=== PATIENT | female | born 1995 | race Caucasian/White ===

== ENCOUNTER → 2018-04-16 14:42 | Outpatient (CLI) | payer MEDICAID, SELFPAY ==
[2018-04-16 15:49] LABS: hCG Titer Quant., Serum 5998 mIU/mL (<9 non-preg)
== END ==
PROVIDERS: Referring Provider Obstetrics & Gynecology; Visit Provider Obstetrics & Gynecology
DX: Z34.90 Encounter for supervision of normal pregnancy, unspecified, unspecified trimester (principal)
CPT/HCPCS: 36415; 84702

== ENCOUNTER 2018-04-20 17:45 | Emergency (ER) | payer MEDICAID, SELFPAY ==
[2018-04-20 17:45] VITALS: BP 166/79; PULSE 116; RESP 20; TEMP 36.4; O2SAT 95; BMI 24.9
[2018-04-20 18:48] LABS: Absolute Lymphocyte Count 3.23 X10^3/ul (0.83-4.51); Absolute Neutrophil Count 7.5 X10^3/uL (2.0-7.7); Basophil# 0.01 X10^3/uL; Basophil% 0.1 % (0-1); Eosinophil# 0.15 X10^3/uL; Eosinophils% 1.3 % (0-5); Hematocrit 40.9 % (37-47); Hemoglobin 13.7 g/dl (12.0-15.0); Lymphocyte # 3.23 X10^3/ul (4.0); Lymphocyte % 27.2 % (19-41); Mean Corp Hgb Conc 33.5 g/gl (32-36); Mean Corpuscular Hgb 30.4 pg (27.0-32.0); Mean Corpuscular Volume 90.7 fL (81-99); Mean Platelet Vol. 10.4 fl (6.2-12.0); Monocyte# 0.93 X10^3/uL; Monocyte% 7.8 % (0-10); Neutrophil # 7.53 X10^3/uL (2.7-7.7); Neutrophil % 63.3 % (47-70); Platelet Count 224 K/mm3 (150-450); RBC Distribution Width CV 12.7 % (11.6-14.6); RBC Distribution Width SD 41.9 fl (35.1-43.9); Red Blood Count 4.51 M/mm3 (4.2-5.4); White Blood Count 11.9 K/mm3 (4.4-11.0)
[2018-04-20 18:49] LABS: POSITIVE COUNT NO; POSITIVE DIFFERENTIAL NO; POSITIVE MORPHOLOGY NO
--- NOTE | 2018-04-20 18:58 | ED.VISSUMM ---
- ER Visit Summary Date of Service: 04/20/18 Chief Complaint: Vaginal bleeding History of Present Illness: The patient is a 23 F presenting for evaluation secondary to vaginal bleeding. Patient states that she is early on in a . She had a positive test at the OB office. Patient states that she had intercourse today, and started to have vaginal bleeding and was passing some small clots and having some pelvic cramping. Patient is a . She does not know her blood type. She denies any other symptoms at this time. Physical Examination: Vital signs initially notable for heart rate of 116 which improved a heart rate of 90 on my physical exam. Tearful female not in physiologic distress. No conjunctival pallor moist mucous membranes. Heart regular rate and rhythm lungs clear. Abdomen soft nontender. Remainder of physical otherwise unremarkable. Chaperoned pelvic exam shows normal external genitalia, normal cervix, mild active bleeding coming from the cervical loss with a closed cervical eyes. Test Results: Bedside ultrasound of the pelvis shows a yolk sac with no pole identified. Patient is type O+ blood, urine shows a mild amount of blood with no infection. Chemistry unremarkable. Emergency Department Course and Treatment: Patient presented with first trimester vaginal bleeding. Pelvic ultrasound was able to identify a yolk sac, making the likelihood of ectopic very low. Patient's type O+ blood. She had a quantitative hCG drawn approximately a week ago which was 5000. Patient will be instructed that she needs to follow-up with OB in 48 hours for a repeat quantitative hCG. Patient was discharged with reassurance. Disposition: Discharge Impression: 1. Threatened miscarriage This note was generated with [employer] dictation software. It may contain incorrect words, spelling, and punctuation that were not noted in review of the chart prior to signing ED Disposition - Plan for ED Patient: Disposition: Home or Assisted Living Chief Complaint: Vag Bld, Preg Diagnosis: Threatened miscarriage Instructions: ED Miscarriage Poss Additional Instructions: Followup with your OBGYN in 2 days for a repeat HCG.
[2018-04-20 19:00] LABS: Anion Gap 8 (5-15); BUN 18 mg/dL (7-18); BUN/Creat Ratio 28.2 RATIO (10-20); Calcium,Total 8.6 mg/dL (8.5-10.1); Chloride 107 mmol/L (98-107); Creatinine, Serum 0.64 mg/dL (0.55-1.02); EST Glomerular Filtration Rate 124 mL/min (>60); Est Glom Filt Rate - Afr Amer 150 mL/min (>60); Estimated Creatinine Clearance 104.04 ml/min; Glucose 104 mg/dL (74-106); Sodium Level 140 mmol/L (136-145)
[2018-04-20 19:40] LABS: Bacteria 0 SEEN /hpf (None Seen); Mucous, Urine 0 SEEN /hpf (<or=2+); Squamous Epithelial Cells - UA 0 SEEN /hpf (5-10); White Blood Cells 0 SEEN /hpf (0-5)
[2018-04-20 19:43] LABS: Glucose, Dipstick Normal (Normal); Ketone-Dipstick Negative (Negative); Leukocyte Esterase-Dipstick Negative /ul (Negative); Nitrite-Dipstick Negative (Negative); Occult Blood-Urine 250 /ul (Negative); Protein-Dipstick Negative (Negative); Urine Bilirubin Dipstick Negative (Negative); Urine Urobilinogen Normal (Normal)
[2018-04-20 19:45] LABS: Color, Urine Yellow (Yellow); Urine Clarity Clear (Clear)
[2018-04-20 19:52] LABS: Red Blood Cells-Urine 25-50 SEEN /hpf (0-5)
[2018-04-20 21:22] VITALS: PULSE 87; RESP 16; O2SAT 98
[2018-04-20 21:25] LABS: hCG Titer Quant., Serum 17243 mIU/mL (<9 non-preg)
== END 2018-04-20 21:36 | disposition home or self-care (01) ==
PROVIDERS: Emergency Medicine; Emergency Provider Emergency Medicine
DX: O20.0 Threatened abortion (principal)
CPT/HCPCS: 80048; 81001; 84702; 85025; 86900; 86901; 99283; A4216

== ENCOUNTER 2018-11-12 19:03 | Emergency (ER) | payer MEDICAID, SELFPAY ==
[2018-11-12 19:03] VITALS: BP 138/80; PULSE 90; RESP 20; O2SAT 98
[2018-11-12 19:04] VITALS: BP 146/91; PULSE 97; RESP 24; TEMP 37.4; O2SAT 97; BMI 37.4
--- NOTE | 2018-11-12 19:08 | ED.RN ---
Addendum entered by Zaida Bob 11/12/18 19:34: PT HEAD CAGER IS HEATH NOT NGUYỄN Original Note: SPOKE WITH THE CHARGE NURSE IN [facility]. SEE PT IN ER FOR TRAUMA THEN CONTACT DR ADRIAN AND SEND TO [facility]
--- NOTE | 2018-11-12 19:36 | ED.DCSUM_ITS ---
- ER Visit Summary Date of Service: 11/12/18 Chief Complaint: Fall History of Present Illness: The patient is a 23 F presenting after fall. Patient states that it was raining and she slipped on wet steps. She fell down approximately 5 steps. She did not hit her head or lose consciousness. She complains of left lower back pain. She is 36 weeks , G2, P1. She is scheduled to have a planned on December 12. She denies vaginal bleeding. Denies hematuria. Denies other injuries. Physical Examination: Vitals are stable. Blood pressure 146/91. Patient is afebrile. Alert no acute distress. HEENT exam is unremarkable. Neck is nontender Lungs are clear and equal bilaterally. Heart is regular rate and rhythm. Abdomen is soft nontender gravid Back left paraspinal lumbar muscle tenderness, no midline tenderness Extremities are unremarkable. Skin is warm and dry. Remainder of exam is unremarkable. Emergency Department Course and Treatment: heart tones 128. She was given Tylenol. Discussed with Dr. Lacey. Patient will be sent to OB triage for monitoring and blood pressure monitoring. Disposition: To OB triage Impression: Fall, back pain, third trimester This note was generated with [employer] dictation software. It may contain incorrect words, spelling, and punctuation that were not noted in review of the chart prior to signing ED Disposition - Plan for ED Patient: Instructions: FALL, Mechanical Referrals: Jeferson Bhagat [NON-STAFF] -
--- NOTE | 2018-11-12 19:42 | ED.DEP ---
ED Disposition - Plan for ED Patient: Instructions: FALL, Mechanical Referrals: Jeferson Bhagat [NON-STAFF] -
[2018-11-12] MEDS: Acetaminophen 500 MG Tablet 1000 MG PO (19:50)
[2018-11-12 20:00] VITALS: BP 138/78
== END 2018-11-12 20:00 | disposition home or self-care (01) ==
PROVIDERS: Emergency Provider Emergency Medicine
DX: O99.89 Other specified diseases and conditions complicating pregnancy, childbirth and the puerperium (principal); M54.5 Low back pain; W10.9XXA Fall (on) (from) unspecified stairs and steps, initial encounter; Z3A.36 36 weeks gestation of pregnancy

== ENCOUNTER 2018-11-12 19:56 | Outpatient (CLI) | payer MEDICAID, SELFPAY ==
[2018-11-12 19:04] VITALS: BMI 37.4
[2018-11-12 20:30] VITALS: BMI 34.4
[2018-11-12 22:42] VITALS: RESP 18
--- NOTE | 2018-11-18 13:43 | OB.TRI.NOTE ---
History of Present Illness Date of Service: 11/12/18 Was patient seen by the physician?: No Reason For Visit: FALL Allergies No Known Allergies Allergy (Verified 11/12/18 20:30) Physical Exam Vitals: Vital Signs Resp 18 11/12/18 22:42 Impression/Plan Patient Name: MARCIO SORENSEN Record Number: [id number] Date of : [birth year] Patient Status: Inpatient Attending Provider: Re Osuna Date: 11/13/18 08:12 Initialization Date: 11/13/18 08:12 History of Present Illness Date of Service: 11/12/18 Was patient seen by the physician?: No Reason For Visit: REPEAT C SECTION/NEEDS ANES CONSULT Date of Service: 11/12/18 Final JULIA: 12/19/18 Gestational age: 34 Weeks and 6 Days Allergies No Known Allergies Allergy (Verified 11/12/18 20:30) NST - FHR Rate Baby A Baseline: 125 Variability:: Moderate Accelerations:: 15 x 15 Decelerations:: None NST Reactive:: Yes FHR Category:: Category I Uterine Activity:: no regular ctxs Impression/Plan 23-year-old 2 para 1 at 34-5/7 weeks, high risk multigravida, fall on her buttocks. Nonstress test is reactive. Patient was monitored until 4 hours post fall. She had no direct abdominal trauma. She is Rh+. Discharged home with kick counts and to follow-up in the office as scheduled or as needed.
== END 2018-11-12 22:42 | disposition home or self-care (01) ==
LOC: WPOUT 20:06 → WP 20:06
PROVIDERS: Visit Provider Obstetrics & Gynecology
DX: O99.89 Other specified diseases and conditions complicating pregnancy, childbirth and the puerperium (principal); M54.5 Low back pain; W10.9XXA Fall (on) (from) unspecified stairs and steps, initial encounter; O09.623 Supervision of young multigravida, third trimester; O34.219 Maternal care for unspecified type scar from previous cesarean delivery; O36.0130 Maternal care for anti-D [Rh] antibodies, third trimester, not applicable or unspecified; Z3A.36 36 weeks gestation of pregnancy
CPT/HCPCS: 59025; 59050; 99218; 99282; G0378

== ENCOUNTER 2018-12-07 18:50 | Outpatient (CLI) | payer MEDICAID, SELFPAY ==
[2018-12-07 19:50] LABS: ROM Internal Control Test YES-OK TO RESULT pt. (Internal QC); ROM Patient Test Negative (Negative)
[2018-12-07 19:53] VITALS: BMI 34.7
[2018-12-07 19:57] LABS: Color, Urine Yellow (Yellow); Glucose, Dipstick Normal (Normal); Ketone-Dipstick 15 mg/dl (Negative); Leukocyte Esterase-Dipstick 100 /ul (Negative); Nitrite-Dipstick Negative (Negative); Occult Blood-Urine Negative /ul (Negative); Protein-Dipstick 30 mg/dl (Negative); Urine Bilirubin Dipstick 1 mg/dL (Negative); Urine Clarity Sl. Cloudy (Clear); Urine Urobilinogen 4 mg/dl (Normal)
[2018-12-07] MEDS: 0.9% Normal Saline 1,000 ML 500 ML IV (20:47)
[2018-12-07] MEDS: proMETHazine 25 MG/ML Syringe IV (20:58)
[2018-12-07 21:13] LABS: Hematocrit 37.8 % (37-47); Hemoglobin 12.7 g/dL (12.0-15.0); Mean Corp Hgb Conc 33.6 g/dL (32-36); Mean Corpuscular Hgb 29.9 pg (27.0-32.0); Mean Corpuscular Volume 88.9 fL (81-99); Platelet Count 218 K/mm3 (150-450); RBC Distribution Width CV 13.8 % (11.6-14.6); RBC Distribution Width SD 44.3 fl (35.1-43.9); Red Blood Count 4.25 M/mm3 (4.2-5.4); White Blood Count 9.8 K/mm3 (4.4-11.0)
[2018-12-07 21:31] LABS: ALB/GLOB Ratio 0.8 RATIO (0.9-2.4); AST(SGOT) 21 U/L (15-37); Alanine Aminotransfer ALT/SGPT 26 U/L (13-56); Albumin, Serum 2.8 g/dL (3.2-5.0); Alkaline Phosphatase 151 U/L (45-117); Anion Gap 8 (5-15); BUN 11 mg/dL (7-18); BUN/Creat Ratio 17.2 RATIO (10-20); Calcium,Total 8.3 mg/dL (8.5-10.1); Chloride 106 mmol/L (98-107); Creatinine, Serum 0.64 mg/dL (0.55-1.02); EST Glomerular Filtration Rate 123 mL/min (>60); Est Glom Filt Rate - Afr Amer 149 mL/min (>60); Estimated Creatinine Clearance 109.05 ml/min; Globulin 3.6 g/dL (2.2-4.2); Glucose 82 mg/dL (74-106); Potassium 3.8 mmol/L (3.5-5.1); Protein, Total 6.4 g/dL (6.4-8.2); Sodium Level 136 mmol/L (136-145)
--- NOTE | 2018-12-08 09:05 | OB.TRI.HP_ITS ---
History of Present Illness Date of Service: 12/07/18 Was patient seen by the physician?: No Reason For Visit: RULE OUT LABOR Final JULIA: 12/19/18 Gestational age: 38 Weeks and 3 Days Allergies No Known Allergies Allergy (Verified 12/07/18 19:52) Laboratory Studies: Laboratory Tests 12/07/18 12/07/18 12/07/18 Range/Units 20:47 20:47 19:43 WBC 9.8 (4.4-11.0) K/mm3 RBC 4.25 (4.2-5.4) M/mm3 Hgb 12.7 (12.0-15.0) g/dL Hct 37.8 (37-47) % MCV 88.9 (81-99) fL MCH 29.9 (27.0-32.0) pg MCHC 33.6 (32-36) g/dL RDW Std Deviation 44.3 H (35.1-43.9) fl RDW Coeff of Becky 13.8 (11.6-14.6) % Plt Count 218 (150-450) K/mm3 MPV 11.0 (6.2-12.0) fl Sodium 136 (136-145) mmol/L Potassium 3.8 (3.5-5.1) mmol/L Chloride 106 (98-107) mmol/L Carbon Dioxide 22.0 (21.0-32.0) mmol/L Anion Gap 8 (5-15) BUN 11 (7-18) mg/dL Creatinine 0.64 (0.55-1.02) mg/dL Estim Creat Clear Calc 109.05 ml/min Est GFR (MDRD) Af Amer 149 (>60) mL/min Est GFR (MDRD) Non-Af 123 (>60) mL/min BUN/Creatinine Ratio 17.2 (10-20) RATIO Glucose 82 (74-106) mg/dL Calcium 8.3 L (8.5-10.1) mg/dL Total Bilirubin 0.40 (0.20-1.00) mg/dL AST 21 (15-37) U/L ALT 26 (13-56) U/L Alkaline Phosphatase 151 H (45-117) U/L Total Protein 6.4 (6.4-8.2) g/dL Albumin 2.8 L (3.2-5.0) g/dL Globulin 3.6 (2.2-4.2) g/dL Albumin/Globulin Ratio 0.8 L (0.9-2.4) RATIO Urine Color Yellow (Yellow) Urine Clarity Sl. Cloudy (Clear) Urine pH 6.0 (5.0 - 8.0) Ur Specific Fairchild 1.020 (1.002-1.030) Urine Protein 30 H (Negative) mg/dl Urine Glucose (UA) Normal (Normal) mg/dl Urine Ketones 15 H (Negative) mg/dl Urine Occult Blood Negative (Negative) /ul Urine Nitrite Negative (Negative) Urine Bilirubin 1 H (Negative) mg/dL Urine Urobilinogen 4 H (Normal) mg/dl Ur Leukocyte Esterase 100 H (Negative) /ul Vag Amniotic Fld Detect (Negative) 12/07/18 Range/Units 19:00 WBC (4.4-11.0) K/mm3 RBC (4.2-5.4) M/mm3 Hgb (12.0-15.0) g/dL Hct (37-47) % MCV (81-99) fL MCH (27.0-32.0) pg MCHC (32-36) g/dL RDW Std Deviation (35.1-43.9) fl RDW Coeff of Becky (11.6-14.6) % Plt Count (150-450) K/mm3 MPV (6.2-12.0) fl Sodium (136-145) mmol/L Potassium (3.5-5.1) mmol/L Chloride (98-107) mmol/L Carbon Dioxide (21.0-32.0) mmol/L Anion Gap (5-15) BUN (7-18) mg/dL Creatinine (0.55-1.02) mg/dL Estim Creat Clear Calc ml/min Est GFR (MDRD) Af Amer (>60) mL/min Est GFR (MDRD) Non-Af (>60) mL/min BUN/Creatinine Ratio (10-20) RATIO Glucose (74-106) mg/dL Calcium (8.5-10.1) mg/dL Total Bilirubin (0.20-1.00) mg/dL AST (15-37) U/L ALT (13-56) U/L Alkaline Phosphatase (45-117) U/L Total Protein (6.4-8.2) g/dL Albumin (3.2-5.0) g/dL Globulin (2.2-4.2) g/dL Albumin/Globulin Ratio (0.9-2.4) RATIO Urine Color (Yellow) Urine Clarity (Clear) Urine pH (5.0 - 8.0) Ur Specific Fairchild (1.002-1.030) Urine Protein (Negative) mg/dl Urine Glucose (UA) (Normal) mg/dl Urine Ketones (Negative) mg/dl Urine Occult Blood (Negative) /ul Urine Nitrite (Negative) Urine Bilirubin (Negative) mg/dL Urine Urobilinogen (Normal) mg/dl Ur Leukocyte Esterase (Negative) /ul Vag Amniotic Fld Detect Negative (Negative) NST - FHR Rate Baby A Baseline: 140 Variability:: Moderate Accelerations:: 15 x 15 Decelerations:: None Uterine Activity:: Irregular Impression/Plan Reactive NST for false labor and N&V in Suspect GI virus Labs normal Urine culture pending
== END 2018-12-07 22:52 | disposition home or self-care (01) ==
LOC: WPOUT 19:08 → WP 19:08
PROVIDERS: Referring Provider Obstetrics & Gynecology; Visit Provider Obstetrics & Gynecology
DX: O47.1 False labor at or after 37 completed weeks of gestation (principal); O21.9 Vomiting of pregnancy, unspecified; O21.8 Other vomiting complicating pregnancy; Z3A.38 38 weeks gestation of pregnancy
CPT/HCPCS: 96361 ×2; 96374; 36415; 59025; 59050; 80053; 81002; 84112; 85027; 87086; 87088; 99218; J7030; G0378

== ENCOUNTER 2018-12-11 07:35 | Inpatient (IN) | payer MEDICAID, SELFPAY ==
--- NOTE | 2018-11-13 08:12 | OB.TRI.NOTE ---
History of Present Illness Date of Service: 11/12/18 Was patient seen by the physician?: No Reason For Visit: REPEAT C SECTION/NEEDS ANES CONSULT Date of Service: 11/12/18 Final JULIA: 12/19/18 Gestational age: 34 Weeks and 6 Days Allergies No Known Allergies Allergy (Verified 11/12/18 20:30) NST - FHR Rate Baby A Baseline: 125 Variability:: Moderate Accelerations:: 15 x 15 Decelerations:: None NST Reactive:: Yes FHR Category:: Category I Uterine Activity:: no regular ctxs Impression/Plan 23-year-old 2 para 1 at 34-5/7 weeks, high risk multigravida, fall on her buttocks. Nonstress test is reactive. Patient was monitored until 4 hours post fall. She had no direct abdominal trauma. She is Rh+. Discharged home with kick counts and to follow-up in the office as scheduled or as needed.
--- NOTE | 2018-12-02 10:27 | HP.PCM_ITS ---
History and Physical Date of Admission: 12/12/18 Re Bhagat Physician [employer] H&P Signed Encounter Date: 12/02/2018 Expand All Collapse All Hide copied text Hover for details Ashley He is a 23 year old female who presents for pre op for C/s scheduled at 39 weeks. Pt declines TOLAC. Pt reports no CP, SOB, dizziness. ? PAST?MEDICAL?HISTORY PAST MEDICAL HISTORY Diagnosis Date ? Bipolar disorder (HCC) ? ? Depressive disorder, not elsewhere classified ? ? Followed by Dr Michaels at located within [facility] ? alcohol spectrum disorder ? ? NEGATIVE HISTORY OF 09-04-2011 ? Normal Color Vision ? Other anxiety states ? ? PMH - PAST MEDICAL HISTORY OF ? ? Chiari one malformation ? PTSD (post-traumatic stress disorder) ? ? Reactive attachment disorder ? ? Seizure (HCC) ? ? Spina bifida (HCC) ? ? Patient reports history of spina bifida ?occulta ? PAST?SURGICAL?HISTORY PAST SURGICAL HISTORY Procedure Laterality Date ? SECTION HX ? ? ? NONE ? ? ? FAMILY?HISTORY FAMILY HISTORY Adopted: Yes Problem Relation Age of Onset ? Diabetes Maternal Grandfather ? ? Heart Maternal Grandfather ? ? SOCIAL?HISTORY Social History Socioeconomic History Marital status: Single Spouse name: Not on file Number of children: Not on file Years of education: Not on file Highest education level: Not on file Occupational History Occupation: student Social Needs Financial resource strain: Not on file Food insecurity: Worry: Not on file Inability: Not on file Transportation needs: Medical: Not on file Non-medical: Not on file Tobacco Use Smoking status: Light Tobacco Smoker Smokeless tobacco: Never Used Substance and Sexual Activity Alcohol use: No Drug use: No Sexual activity: Yes Partners: Male Comment: Lifestyle Physical activity: Days per week: Not on file Minutes per session: Not on file Stress: Not on file Relationships Social connections: Talks on phone: Not on file Gets together: Not on file Attends alevism service: Not on file Active member of club or organization: Not on file Attends meetings of clubs or organizations: Not on file Relationship status: Not on file Intimate partner violence: Fear of current or ex partner: Not on file Emotionally abused: Not on file Physically abused: Not on file Forced sexual activity: Not on file Other Topics Concerns: Not on file Social History Narrative Not on file ? CURRENT?MEDICATIONS ? Current Outpatient Medications: omega-3 fatty acids (FISH OIL CONCENTRATE ORAL) Take by mouth. famotidine (PEPCID) 20 mg tablet Take 1 tablet by mouth twice daily. folic acid 1 mg tablet Take 4 tablets by mouth once daily. Smitkblc-Gs-Btn-Fe-FA ( VITAMIN) tab Take 1 tablet by mouth once daily. ? No current facility-administered medications for this visit. Allergies As of Date: 12/02/2018 (No Known Allergies) Fully Assessed 12/02/2018 ? ? REVIEW OF SYSTEMS Abdomen: no ctx Bladder: no dysuria .. Expanded ROS: Negative fever, CP Allergies and current medication updated:Yes ? EXAM: BP 112/68 Wt 194 lb (88.0kg) ? GENERAL: pleasant, female in no apparent distress HEENT: Normocephalic and atraumatic NECK: full range of motion DERMATOLOGY: Normal, without lesions, non-icteric and non-hirsute CARDIAC: regular rate and rhythm CHEST: Clear to auscultation Normal inspiratory effort ABDOMEN: soft, non-tender and gravid. NEURO: alert and oriented x3,exam grossly non-focal EXTREMITIES: normal ? ASSESSMENT AND PLAN: Encounter Diagnosis ? ? ICD-10-CM ? 1. Visit for screening Z36.9 URINE OB DIP B/O 2. 37 weeks gestation of Z3A.37 URINE OB DIP B/O ? 3. Consent signed today 4. Pt has been counseled on risks/benefits and alternatives of surgery including but not limited to anesthesia, bleeding, infection, injury to pelvic structures including bowel, bladder, ureters and vessels. Pt wishes to proceed with surgery at this time. ? ? Re Osuna MD ? ?
[2018-12-09 15:30] VITALS: BP 123/73; PULSE 62; RESP 18; TEMP 36.4; O2SAT 97; BMI 35.5
[2018-12-11] VITALS (14 sets, daily range): BP systolic 97–130; BP diastolic 45–70; PULSE 70–86; RESP 16–18; TEMP 35.7–36.6; O2SAT 95–99; BMI 34.2
[2018-12-11] MEDS: Lactated Ringers 1,000 ML 999 ML IV (07:40)
[2018-12-11 07:57] LABS: Absolute Lymphocyte Count 2.66 X10^3/uL (0.83-4.51); Absolute Neutrophil Count 7.2 X10^3/uL (2.0-7.7); Basophil# 0.03 X10^3/uL; Basophil% 0.3 % (0-1); Eosinophil# 0.08 X10^3/uL; Eosinophils% 0.7 % (0-5); Lymphocyte # 2.66 X10^3/ul (4.0); Lymphocyte % 24.3 % (19-41); Mean Corp Hgb Conc 34.2 g/dL (32-36); Mean Corpuscular Hgb 30.4 pg (27.0-32.0); Mean Corpuscular Volume 88.8 fL (81-99); Monocyte% 8.2 % (0-10); NRBC Flagged by Analyzer 0 % (0-5); Neutrophil # 7.19 X10^3/uL (2.7-7.7); Neutrophil % 65.7 % (47-70); Platelet Count 204 K/mm3 (150-450); RBC Distribution Width CV 13.5 % (11.6-14.6); RBC Distribution Width SD 43.7 fl (35.1-43.9); Red Blood Count 4.28 M/mm3 (4.2-5.4)
[2018-12-11] MEDS: Sodium Citrate/Citric Acid 30 ML UDC PO (08:01)
[2018-12-11] MEDS: Cefazolin 2 GM in 0.9% Normal Saline 100 ML IV (08:31)
[2018-12-11] MEDS: Oxytocin 30 units/NS 500 ml 30 UNITS/500 ML IV.SOLN 167 UNITS IV (08:44)
[2018-12-11] MEDS: Ketorolac 30 MG/ML Syringe IV ×3 (09:27→21:11)
[2018-12-11] MEDS: Lactated Ringers 1,000 ML 100 ML IV ×3 (09:40→14:22)
--- NOTE | 2018-12-11 09:41 | PCM.OPRPT ---
Delivery Classification: SHELDON Final JULIA: 12/19/18 Gestational age: 38 Weeks and 6 Days Indications: Patient presented to [facility] labor and delivery in active labor. She went from 4 cm dilated to 9 cm dilated at a +1 station. Patient only desired a trial of labor if she was complete and was able to push. Patient opted for repeat section at this time. Indications for : Repeat Elective Description of Procedure: Surgeon: Dr. Re Osuna Production Welding Supervisor:GENESIS Haji Procedure performed: Repeat section Anesthesia: epidural Preoperative diagnosis: Term gestation 38.6 weeks gestation active labor, desires a repeat elective section Postoperative Diagnosis: same- live female infant Findings: Fetus at a +1 station prior to delivery push-up from below needed. Difficult to deliver the infant was minimal room to fit my hand behind the pubic bone down to the vagina to her disengage the head at this time the was brought to the uterine incision however the head was asynclitic OP facing could not bring the head to the uterine incision. At this time decision was made to rotate the baby to breech presentation and deliver infant breech. This was done without difficulty. Extra help was called into the room prior to being able to get delivered. EBL: 900 cc Implantable devices: None Operative note: After informed consent was obtained the patient was taken to the operating room she was given epidural anesthesia as we were debating between a trial of labor versus an elective . Once the epidural was placed the patient was still 9 cm and patient opted for .. she was placed in the supine position. She was then prepped and draped in normal sterile fashion. Once anesthesia was found to be adequate skin incision was made with a scalpel in a Pfannenstiel fashion. It was carried down to the underlying layer of the fascia. Fascia was then incised midline with scapel and extended laterally using curved britt. 2 straight Shabbona's were placed in the superior aspect of the fascial edge and the rectus muscles were dissected off sharply. Attention was then turned to the inferior aspect where again the fascial edge was grasped with 2 straight Juanita clamps tented up and the rectus muscle dissected off sharply. At this time the rectus muscles were grasped in the midline using 2 Allis clamps and scalpel was used to separate the rectus muscles. Using blunt force the peritoneum was then entered. Metzenbaums were used to take down the rectus muscles inferiorly as well as the peritoneum. Significant omental adhesions to the anterior uterus and the peritoneum were noted-they were taken down using the Bovie. They were packed behind the uterus moist laps. At this time the vesicouterine peritoneum was identified. Metzenbaum scissors were used to create a bladder flap and then taken down digitally. Uterine incision was made in a low transverse fashion with the scalpel and then entered bluntly. Gentle opposing traction was placed to extend the uterine incision. The membranes were ruptured amniotic fluid clear. push up from below was needed to disengage the head. I could not fit my hand behind the pubic bone to reach all the way into the vagina to disengage. Manage scissors were used to extend the uterine incision on the right to allow more room. As well as to cut the muscle on the right. At this time once the head was disengaged it remained in the OP position but became asynclitic to the patient's left side. At this time I was not able to bring the 's head to the uterine incision and decision was made at this time to deliver the breech. Extra help was called into the operating room prior to delivering the fetus in the breech position. The head was pushed up and the buttocks was brought to the uterine incision was delivered atraumatically. The 's cord was clamped and cut immediately and handed to the waiting nursery team. The placenta was then removed with gentle traction. The uterus was removed from the intra-abdominal cavity is wrapped in a moist lap. He was cleared of all clots and debris using a moist lap. Ring clamps were placed on the uterine angles. Small left of midline extension was appreciated. this was repaired using #1 Vicryl in a running locked fashion. Dr. Merle Gold did come in to the operating room at this time to help with this repair. Once I got good hemostasis and good visualization Dr. Merle Gold scrubbed out. Upon good inspection there was no injury to the bladder. The catheter was draining light pink-tinged urine which was present prior to start of the case. #1 Vicryl suture was used in a running locked fashion for the first layer. Followed by second imbricating layer with #1 Vicryl. At this time then the uterus was placed back into abdominal cavity uterine incision was evaluated. Site of the left midline extension had small oozing. Frnghz-uo-acwnk suture using #2 Vicryl was placed for hemostasis. This area was monitored good hemostasis was appreciated and Adrienne was placed over the uterine incision. And noted to be of good hemostasis. Peritoneum was reapproximated using #2 Vicryl suture in a running fashion. Muscle on the right was then reapproximated using #2 Vicryl in an interrupted mattress suture fashion. The fascia was then reapproximated using #1 Vicryl in a running fashion. Subcutaneous layer was evaluated and Bovie was used for any small oozing that was noted per #2-0 plain gut suture was then used to reapproximate the subcutaneous layer 4-0 Monocryl was used to reapproximate the skin in a subcutaneous fashion. Dry sterile dressing was applied. Instrument lap needle count were correct ?2. Anticipated normal postoperative course for this patient. Amniotic Membrane Rupture Type: Spontaneous Amniotic Fluid Description: Clear Placenta Disposition: [facility] Drain: Sloan to straight drain Cord Entanglement: None Cord Vessel Description: 3 Vessels Esitmated Blood Loss (ml): 900 Gender: Female (1 minute): 9 (5 minute): 9 Delayed cord clamping: No Pre-op Antibiotic Given: - - Azithromycin 500 mg IV x1 Pt instructed on risks of surgery: Bleeding, Anesthesia Risks, Infection, Need for Future C-Sections, Injury to surrounding structure(s) including bowel and bladder Complications: - - difficulty delivery of the infant's head. Infant was delivered in the breech presentation - Admit VTE Documentation VTE Present on Admission: Yes VTE Mechan Device Prophylaxis: SCD's VTE Pharm Prophylaxis ordered?: Yes
[2018-12-11] MEDS: Acetaminophen 500 MG Tablet 1000 MG PO (12:05)
[2018-12-11] MEDS: HYDROmorphone 1 MG/ML Syringe IV ×2 (12:48→17:50)
--- NOTE | 2018-12-11 15:04 | NURSING ---
Received bedside shift report from Letty Manzo RN. I will assume care at this time.
[2018-12-11 18:34] LABS: Amphetamine Urine VISTA NEGATIVE (<1000 ng/mL); Barbiturate Urine VISTA NEGATIVE (< 200 ng/mL); Benzodiazepine Urine VISTA NEGATIVE (< 200 ng/mL); Cocaine Urine VISTA NEGATIVE (< 300 ng/mL); Ecstacy Urine VISTA NEGATIVE (< 500 ng/mL); Methadone Urine VISTA NEGATIVE (< 300 ng/mL); PCP Urine VISTA NEGATIVE (< 25 ng/mL); THC Urine VISTA POSITIVE (< 50 ng/mL); Vista UDS pH Range 6
--- NOTE | 2018-12-11 20:00 | NURSING ---
this RN contacted Dr. Cruz business law professor to inform her of recent resulted [facility] urine being positive for opiates and canabinoids. no admission urine was obtained on this pt. this urine was collected by Kyle PALACIOS from rider catheter after pt delivered and had been given IV dilaudid. Dr. Cruz states no interventions to be taken at this time. continue to monitor infant per protocal.
[2018-12-11] MEDS: 0.9% Saline Lock 10 ML Syringe IV (21:10)
[2018-12-11] MEDS: oxyCODONE 5 MG Tablet PO (22:08)
[2018-12-12] MEDS: 0.9% Saline Lock 10 ML Syringe IV ×4 (00:32→21:52)
[2018-12-12 00:33] VITALS: BP 127/74; PULSE 74; RESP 16; TEMP 36.9
[2018-12-12 03:12] VITALS: BP 125/69; PULSE 74; RESP 16; TEMP 36.7
[2018-12-12] MEDS: Ketorolac 30 MG/ML Syringe IV ×4 (03:16→21:52)
[2018-12-12] MEDS: Enoxaparin 40 MG/0.4 ML Syringe SC (05:11)
[2018-12-12 05:36] LABS: Hematocrit 29.1 % (37-47); Hemoglobin 9.6 g/dL (12.0-15.0); Mean Corpuscular Hgb 29.5 pg (27.0-32.0); Mean Corpuscular Volume 89.5 fL (81-99); Mean Platelet Vol. 10.9 fl (6.2-12.0); Platelet Count 174 K/mm3 (150-450); RBC Distribution Width CV 13.5 % (11.6-14.6); RBC Distribution Width SD 44.2 fl (35.1-43.9); Red Blood Count 3.25 M/mm3 (4.2-5.4)
[2018-12-12 08:00] VITALS: BP 119/75; PULSE 76; RESP 16; TEMP 36.1
--- NOTE | 2018-12-12 08:28 | PCM.PN.OB ---
Subjective: Seen up at chair doing well. Patient reports good pain control. Mild lochia. Voiding without difficulty. Not passing flatus but feels that she will be soon. Patient denies any nausea, vomiting, chest pain, dizziness, palpitations. - Physical Exam General: Alert, Oriented x3 Abdomen: Soft, Non-Distended, - - Dressing dry and intact, fundus firm Extremities: No Calf Tenderness Vital Signs Temp Pulse Resp BP Pulse Ox 97.0 F L 76 16 119/75 95 12/12/18 08:00 12/12/18 08:00 12/12/18 08:00 12/12/18 08:00 12/11/18 19:52 Oxygen Delivery Method Room Air Weight: 84.822 kg Body Mass Index (BMI) 34.2 Intake and Output for Last 24 Hours 12/10/18 12/11/18 12/12/18 23:59 23:59 23:59 Intake Total 3830 / 3830 654 / 654 Output Total 825 / 825 700 / 700 Balance 3005 / 3005 -46 / -46 Laboratory Tests Past 24 Hrs 12/11/18 12/11/18 12/12/18 07:50 18:00 05:15 WBC 16.0 H RBC 3.25 L Hgb 9.6 L Hct 29.1 L MCV 89.5 MCH 29.5 MCHC 33.0 RDW Std Deviation 44.2 H RDW Coeff of Becky 13.5 Plt Count 174 MPV 10.9 Urine Opiates Screen POSITIVE H Urine Methadone Screen NEGATIVE Ur Barbiturates Screen NEGATIVE Ur Phencyclidine Scrn NEGATIVE Ur Amphetamines Screen NEGATIVE U Methamphetamin-MDMA NEGATIVE U Benzodiazepines Scrn NEGATIVE Urine Cocaine Screen NEGATIVE U Cannabinoids Screen POSITIVE H Ur Drug Screen Comment Blood Type O POSITIVE Antibody Screen NEGATIVE Medical Necessity - Tobacco Use Smoking Status: Former smoker Assessment/Plan All Active Problems Head lice infestation (Acute) Post op day #1, doing well Routine care Ambulation Pain management monitor vital signs
[2018-12-12] MEDS: oxyCODONE 5 MG Tablet PO ×2 (09:49→20:18)
[2018-12-12 13:48] VITALS: BP 99/57; PULSE 84; RESP 15; TEMP 36.1
[2018-12-12] MEDS: Senna/Docusate Sodium 1 Tablet PO (20:19)
[2018-12-12 20:22] VITALS: BP 123/85; PULSE 93; RESP 20; TEMP 36.2
[2018-12-12] MEDS: Acetaminophen 500 MG Tablet 1000 MG PO (21:52)
[2018-12-13 01:49] VITALS: BP 93/53; PULSE 67; RESP 18; TEMP 37; O2SAT 96
[2018-12-13] MEDS: Ibuprofen 600 MG Tablet PO ×2 (04:15→12:57)
[2018-12-13] MEDS: Enoxaparin 40 MG/0.4 ML Syringe SC (06:22)
[2018-12-13] MEDS: Acetaminophen 500 MG Tablet 1000 MG PO (07:11)
[2018-12-13] MEDS: Senna/Docusate Sodium 1 Tablet PO (07:11)
--- NOTE | 2018-12-13 08:00 | PCM.PN.OB ---
Subjective: Seen at bedside doing well. Breast-feeding is going well. Minimal lochia. Denies any chest pain, shortness of breath, dizziness when ambulating. Patient reports positive flatus and voiding without difficulty. pain is well controlled - Physical Exam General: Alert, Oriented x3 Abdomen: Soft, Non-Distended, - - Fundus firm abdominal binder is on patient breast-feeding did not look at incision dressing. Nursing will evaluate prior to DC home Extremities: No Calf Tenderness Vital Signs Temp Pulse Resp BP Pulse Ox 98.6 F 67 18 93/53 L 96 12/13/18 01:49 12/13/18 01:49 12/13/18 01:49 12/13/18 01:49 12/13/18 01:49 Oxygen Delivery Method Room Air Weight: 84.822 kg Body Mass Index (BMI) 34.2 Intake and Output for Last 24 Hours 12/11/18 12/12/18 12/13/18 23:59 23:59 23:59 Intake Total 3830 / 3830 654 / 654 Output Total 825 / 825 700 / 700 Balance 3005 / 3005 -46 / -46 Medical Necessity - Tobacco Use Smoking Status: Former smoker Assessment/Plan All Active Problems Head lice infestation (Acute) Postop day #2 status post repeat in active labor Routine care pain management dc home
--- NOTE | 2018-12-13 08:05 | DCINST_ITS ---
Discharge Diet: No Restrictions Discharge Activity: Return to Normal Activity, May Not Drive - for 2 weeks, May not drive while taking narcotic pain medications., May Shower, May Take a Tub Bath - in 7 days. May resume sexual activity in: 4-6 weeks Lifting Restrictions: 20 pounds Additional Activity Instructions:: Nothing in the vagina for 4-6 weeks. You may return to work/school in 6 weeks. Call your doctor if your incision/area has: Continuous Slow Oozing, Sudden Increased Bleeding, Increased Pain/ Swelling, Increased Redness, Foul Smelling Discharge Call your doctor if you observe: Fever of 101 or Higher, Using more than one pad per hour - for 2 hours Suture Line Care: Avoid Pulling/Pushing, Avoid Pinching/Bending Cleanse incision/area with: Keep Dressing Clean & Dry Additional Instructions: If you experience any of the following, contact your healthcare provider. * Bleeding that soaks a pad every hour for 2 hours * Fever 100.4 or higher * Unrelieved incision or abdominal pain * Swelling, redness, discharge or bleeding from your incision or episiotomy site * Your incision begins to separate * Problems urinating (including inability to urinate or burning while urinating). * Visual changes * Severe headache * Flu-like symptoms * Pain or redness in one of both of your breasts * Pain, warmth, tenderness or swelling in your legs, especially the calf area * Frequent nausea and vomiting * Symptoms of depression or anxiety If you experience any of the following, call 911 or go to the nearest Emergency Room. * Chest pain * Problems breathing * Seizure activity * Partial or complete paralysis of a body part, slurred speech, weakness or drooping of the face, or a sudden inability to walk or hold your balance Allergies/Adverse Reactions: Allergies No Known Allergies Allergy (Verified 12/11/18 11:24) Medications to take at Discharge Vits [Prenatabs FA ] 1 tablet PO DAILY 04/20/18 Ibuprofen [Motrin] 600 mg PO Q6H PRN PRN #60 tab 12/13/18 Oxycodone HCl/Acetaminophen [Percocet 5/325] 1 tablet PO Q4H PRN PRN 7 Days #20 tablet 12/13/18 Senna/Docusate Sodium [Senokot-S] 1 tab PO DAILY PRN #14 tab 12/13/18 SimETHICONE [Mylicon] 80 mg PO PCHS PRN #30 tab 12/13/18 The following prescriptions were given: Ibuprofen [Motrin] 600 mg PO Q6H PRN PRN #60 tab PRN Reason: Mild Pain (-07/21) Transmission Status: Pending to [facility] [place] [address] SimETHICONE [Mylicon] 80 mg PO PCHS PRN #30 tab PRN Reason: Indigestion/stomach pain Transmission Status: Pending to [facility] [place] [address] Oxycodone HCl/Acetaminophen [Percocet 5/325] 1 tablet PO Q4H PRN PRN 7 Days #20 tablet PRN Reason: Pain Transmission Status: Received by [facility] [place] [address] Senna/Docusate Sodium [Senokot-S] 1 tab PO DAILY PRN #14 tab PRN Reason: Constipation Transmission Status: Pending to [facility] [place] [address] Follow-Up: Call to make an appointment with your doctor for an incision check in 1-2 weeks. You will also need a 6 week post- follow up appointment. Test results from this visit will be discussed in further detail at your follow- up appointment, if applicable. Please Follow Up With: Re Osuna MD - Call to make an appointment for an incision check in 1-2 [phone] When: You will need a post- check in 6 weeks. Primary Care Physician: Care Physician,No Primary [Primary Care Provider] -
--- NOTE | 2018-12-13 08:06 | PCM.DC.BLA ---
Discharge Summary Date of Admission: 12/11/18 Date of Discharge: 12/13/18 Summary: Patient presented to [facility] on 12/11/2018 in active labor. Patient declined a trial of labor after previous section we proceeded with a repeat section. Patient underwent low transverse section. Had an uncomplicated postoperative course and was discharged home on postoperative day #2 in stable condition. - Physical Exam Vital Signs Temp Pulse Resp BP Pulse Ox 98.6 F 67 18 93/53 L 96 12/13/18 01:49 12/13/18 01:49 12/13/18 01:49 12/13/18 01:49 12/13/18 01:49 Oxygen Delivery Method Room Air Weight: 84.822 kg Body Mass Index (BMI) 34.2 Intake and Output for Last 24 Hours 12/11/18 12/12/18 12/13/18 23:59 23:59 23:59 Intake Total 3830 / 3830 654 / 654 Output Total 825 / 825 700 / 700 Balance 3005 / 3005 -46 / -46
[2018-12-13 08:30] VITALS: BP 119/61; PULSE 70; RESP 17; TEMP 36.6; O2SAT 100
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
[2018-12-13 13:20] VITALS: BP 110/70; PULSE 79; RESP 17; TEMP 36.7; O2SAT 100
== END 2018-12-13 13:20 | disposition home or self-care (01) | DRG 540 ==
PROVIDERS: Advanced Practice Midwife; Admitting Provider Obstetrics & Gynecology; Referring Provider Obstetrics & Gynecology; Visit Provider Obstetrics & Gynecology
DX: O76 Abnormality in fetal heart rate and rhythm complicating labor and delivery (principal); O34.211 Maternal care for low transverse scar from previous cesarean delivery; O42.02 Full-term premature rupture of membranes, onset of labor within 24 hours of rupture; O99.334 Smoking (tobacco) complicating childbirth; F17.200 Nicotine dependence, unspecified, uncomplicated; O32.1XX0 Maternal care for breech presentation, not applicable or unspecified; O99.89 Other specified diseases and conditions complicating pregnancy, childbirth and the puerperium; N73.6 Female pelvic peritoneal adhesions (postinfective); O98.613 Protozoal diseases complicating pregnancy, third trimester; B85.0 Pediculosis due to Pediculus humanus capitis; Z3A.38 38 weeks gestation of pregnancy; Z37.0 Single live birth
CPT/HCPCS: 59050; 80307; 85025; 85027; 86850; 86900; 99218; J7120; A4216; G0378; J2405

== ENCOUNTER 2020-08-27 12:17 | Emergency (ER) | payer MEDICAID, SELFPAY ==
[2018-12-11 07:48] VITALS: BMI 34.2
[2020-08-27 12:18] VITALS: BP 147/106; PULSE 86; RESP 18; TEMP 36.4; O2SAT 95; BMI 32.3
[2020-08-27] MEDS: Ondansetron 4 MG/2 ML Vial IV (12:29)
--- NOTE | 2020-08-27 12:31 | EKG12_ITS ---
Test Reason : OVERDOSE Blood Pressure : / mmHG Vent. Rate : 086 BPM Atrial Rate : 086 BPM P-R Int : 178 ms QRS Dur : 080 ms QT Int : 402 ms P-R-T Axes : 035 024 016 degrees QTc Int : 481 ms Normal sinus rhythm Prolonged QT Abnormal ECG Confirmed by KADY RANKIN, ORV[place]LE ([id number]), content editor NANY CANALES ([id number]) on 08/31/2020 9:19:12 AM Referred By: SHERIF Confirmed By:KRUPA HILLMAN MD
--- NOTE | 2020-08-27 13:48 | ED.DCSUM_ITS ---
- ER Visit Summary Date of Service: 08/27/20 Chief Complaint: Overdose History of Present Illness: The patient is a 25 F with no primary care physician. She reports that this morning she snorted what she thought was cocaine and became unresponsive. EMS gave her Narcan. She is now awake and appropriate. Patient denies opiate abuse. She denies any IV drug abuse. States that she used cocaine when she was a teenager. She denies any cocaine use recently prior to today. Following the Narcan the patient complains of nausea and a headache. She denies any other complaints. Physical Examination: Vitals: Stable. Afebrile. General: Well-nourished and well-developed. Head: Normocephalic atraumatic. Neck: Supple, no lymphadenopathy. No JVD. Nontender. Cardiovascular: Regular rate and rhythm. No murmurs. Respiratory: No respiratory distress. Clear to auscultation bilaterally. Abdominal: Soft, nontender, nondistended, normal bowel sounds. No guarding, rebound, or peritoneal signs. Back: Nontender. Extremities: Nontender, no edema. No track aggarwal. Skin: Normal color, no rash. Neurologic: Alert and oriented ?3. Cranial nerves II through XII are intact. Normal strength and sensation. Psych: Normal affect. Emergency Department Course and Treatment: Patient was given a dose of Zofran IV. She is been observed over the course of an hour and a half and has remained stable. Treatment Plan: Patient be discharged instructions follow-up 180 soon as possible. She is instructed to abstain from drug use. Return to the emergency department for any worsening symptoms. Disposition: To home in improved and stable condition. Impression: 1. Opiate overdose. This note was generated with [employer] software. It may contain incorrect words, spelling, and punctuation that were not noted in review of the chart prior to signing ED Disposition - Plan for ED Patient: Instructions: ED Overdose, Opiate Referrals: [facility] [STAFF PHYSICIAN] - As soon as possible
[2020-08-27 14:00] VITALS: BP 117/74; PULSE 93; RESP 16; O2SAT 93
[2020-08-27 14:22] VITALS: BP 108/72; PULSE 62; RESP 16; O2SAT 95
== END 2020-08-27 14:25 | disposition home or self-care (01) ==
LOC: ED 12:51
PROVIDERS: Emergency Provider Emergency Medicine
DX: T40.601A Poisoning by unspecified narcotics, accidental (unintentional), initial encounter (principal); R40.4 Transient alteration of awareness; Y92.9 Unspecified place or not applicable; Z72.0 Tobacco use
CPT/HCPCS: 93005; 96374; 99285; A4216; J2405

== ENCOUNTER → 2020-12-28 15:21 | Outpatient (CLI) | payer MEDICAID, SELFPAY | PROVIDERS: Referring Provider Obstetrics & Gynecology; Visit Provider Obstetrics & Gynecology | DX: N92.6 Irregular menstruation, unspecified (principal) | CPT/HCPCS: 36415; 84702 ==

== ENCOUNTER 2021-08-15 05:08 | Inpatient (IN) | payer MEDICAID, SELFPAY ==
--- NOTE | 2021-08-08 12:37 | HP.PCM_ITS ---
History and Physical Date of Admission: 08/15/21 Pre-Op History and Physical ? HPI: The patient is a 26 year old female presenting for pre-operative visit. She is scheduled for and bilateral salpingectomy, for repeat elective cs and desires sterilization on 08/15/21. Procedure discussed along with risks, benefits and complications. Other alternatives discussed for management. Consent form signed? Yes. ? ? PAST MEDICAL HISTORY PAST MEDICAL HISTORY Diagnosis Date ? Bipolar disorder (HCC) ? ? Depressive disorder, not elsewhere classified ? ? Followed by Dr Michaels at [facility] ? alcohol spectrum disorder ? ? NEGATIVE HISTORY OF 09-04-2011 ? Normal Color Vision ? Other anxiety states ? ? PMH - PAST MEDICAL HISTORY OF ? ? Chiari one malformation ? depression ? ? PTSD (post-traumatic stress disorder) ? ? Reactive attachment disorder ? ? Seizure (HCC) ? ? Spina bifida (HCC) ? ? Patient reports history of spina bifida ?occulta ? ? PAST SURGICAL HISTORY PAST SURGICAL HISTORY Procedure Laterality Date ? SECTION HX ? ? ? x2 ? ? ? CURRENT MEDICATIONS Current Outpatient Medications Medication Sig Dispense Refill ? citalopram (CELEXA) 20 mg tablet Take 1 tablet by mouth once daily. 30 tablet 11 ? omega-3 fatty acids (FISH OIL CONCENTRATE ORAL) Take by mouth. ? ? ? famotidine (PEPCID) 20 mg tablet Take 1 tablet by mouth twice daily. (Patient not taking: Reported on 01/05/2020 ) 60 tablet 0 ? folic acid 1 mg tablet Take 4 tablets by mouth once daily. (Patient not taking: Reported on 01/05/2020 ) 120 tablet 3 ? Cdifrlgo-Kq-Jcm-Fe-FA ( VITAMIN) tab Take 1 tablet by mouth once daily. 90 tablet 3 ? No current facility-administered medications for this visit. ? ? ALLERGIES: Patient has no known allergies. ? PERSONAL HISTORY: SOCIAL HISTORY Social History ? Tobacco Use ? Smoking status: Former Smoker ? ? Years: 7.00 ? ? Types: Cigarettes ? ? Quit date: 09/22/2020 ? ? Years since quittin.8 ? Smokeless tobacco: Never Used Vaping Use ? Vaping Use: Never used Substance Use Topics ? Alcohol use: No ? Drug use: No ? FAMILY HISTORY: FAMILY HISTORY FAMILY HISTORY Adopted: Yes Problem Relation Age of Onset ? Diabetes Mother ? ? Diabetes Father ? ? No Known Problems Sister ? ? No Known Problems Sister ? ? No Known Problems Brother ? ? No Known Problems Maternal Grandmother ? ? Diabetes Maternal Grandfather ? ? Heart Maternal Grandfather ? ? Cancer Paternal Grandfather ? ? No Known Problems Daughter ? ? No Known Problems Daughter ? ? ? REVIEW OF SYMPTOMS: negative except as noted above PHYSICAL EXAMINATION: ? VITALS: Blood pressure 118/72, weight 206 lb (93.4 kg), last menstrual period 10/12/2020, currently . ? GENERAL: The patient is well nourished, well hydrated in no acute distress. , The patient is oriented to time, place, and person. NECK: full range of motion ABD: soft, gravid, non tender NEURO: A&O x 3 ? IMPRESSION: @ 38.1 weeks ? PLAN: Cs and bilateral salpingectomy ? Pt has been counseled on risks/benefits and alternatives of surgery including but not limited to anesthesia, bleeding, infection, injury to pelvic structures including bowel, bladder, ureters and vessels. Pt wishes to proceed with surgery at this time. Title 19 signed- pt understands this is permanent and risk of regret. Pt wishes to proceed- declines LARC Pre op reviewed COVID testing ordered ? ? I have reviewed and updated past medical and surgical history, medications and allergies Re Bhagat MD
[2021-08-15] VITALS (19 sets, daily range): BP systolic 106–128; BP diastolic 42–87; PULSE 71–111; RESP 16–20; TEMP 35.7–36.6; O2SAT 91–97; BMI 37.6
[2021-08-15] MEDS: Lactated Ringers 1,000 ML 999 ML IV (05:30)
[2021-08-15 05:46] LABS: Absolute Lymphocyte Count 2.32 X10^3/uL (0.83-4.51); Absolute Neutrophil Count 8.5 X10^3/uL (2.0-7.7); Basophil# 0.03 X10^3/uL; Basophil% 0.3 % (0-1); Eosinophil# 0.11 X10^3/uL; Eosinophils% 0.9 % (0-5); Hematocrit 36.5 % (37-47); Hemoglobin 12.4 g/dL (12.0-15.0); Lymphocyte # 2.32 X10^3/ul (0.83-4.51); Lymphocyte % 19.7 % (19-41); Mean Corpuscular Hgb 30.8 pg (27.0-32.0); Mean Corpuscular Volume 90.8 fL (81-99); Mean Platelet Vol. 11.2 fl (6.2-12.0); Monocyte# 0.76 X10^3/uL; Monocyte% 6.4 % (0-10); NRBC Flagged by Analyzer 0 % (0-5); Neutrophil # 8.47 X10^3/uL (2.7-7.7); Neutrophil % 71.9 % (47-70); Platelet Count 213 K/mm3 (150-450); RBC Distribution Width SD 46.4 fl (35.1-43.9); Red Blood Count 4.02 M/mm3 (4.2-5.4); White Blood Count 11.8 K/mm3 (4.4-11.0)
[2021-08-15] MEDS: Acetaminophen 500 MG Tablet 1000 MG PO ×3 (05:59→18:43)
[2021-08-15 06:00] LABS: Amphetamine Urine VISTA NEGATIVE (<1000 ng/mL); Barbiturate Urine VISTA NEGATIVE (< 200 ng/mL); Benzodiazepine Urine VISTA NEGATIVE (< 200 ng/mL); Cocaine Urine VISTA NEGATIVE (< 300 ng/mL); Ecstacy Urine VISTA NEGATIVE (< 500 ng/mL); Methadone Urine VISTA NEGATIVE (< 300 ng/mL); PCP Urine VISTA NEGATIVE (< 25 ng/mL); THC Urine VISTA POSITIVE (< 50 ng/mL); Vista UDS pH Range 5
[2021-08-15] MEDS: Lactated Ringers 1,000 ML 150 ML IV (06:24)
[2021-08-15] MEDS: Sodium Citrate/Citric Acid 30 ML UDC PO (07:01)
[2021-08-15] MEDS: Cefazolin 2 GM in 0.9% Normal Saline 100 ML IV (07:30)
[2021-08-15] MEDS: Oxytocin 30 units/NS 500 ml 30 UNITS/500 ML IV.SOLN 167 UNITS IV (07:30)
--- NOTE | 2021-08-15 07:44 | FALS_PTH ---
PATIENT: MARCIO SORENSEN LOC: [facility] U#:[id number] AGE/SX: 26/F ROOM: WP004 RE08/15/[address]: Dr. Re Osuna, MDDOB: 1995 BED: 1 DIS: 08/17/2021 SPEC #: [id number] RECD: 08/15/21 08:39 STATUS: GEOVANY NARCISO #: [id number] ROBERT: 08/15/21 07:[address]: Re Osuna DEPT: SURGICAL PATHOLOGY RECD BY: Karyn Martinez ENTERED: 08/15/21 12:29 SP TYPE: FALL TUBES OTHR DR: Libia Primary Care Phys Tissues: Fallopian tube Procedures: Surgery Specimen Level II HEADER OPERATION: Tubal ligation PRE-OP DIAGNOSIS: Sterilization TISSUE SUBMITTED: Fallopian tubes, suture in right MICROSCOPIC DIAGNOSIS Right and left fallopian tubes, bilateral salpingectomies: Complete cross-sections of fallopian tubes with no pathologic change. AM:ami 08/16/2021 MICROSCOPIC DESCRIPTION Slides are reviewed. GROSS DESCRIPTION Received in fixative is one container labeled with the patient's name and designated bilateral fallopian tubes. The specimen requisition states ?tag in right tube;? however, the tag is coming out from the fallopian tube and no tag is noted. One fallopian tube measures 5.5 cm in length and 0.6 cm in diameter. This fallopian tube shows fimbrial end. Sections reveal unremarkable cut surfaces. The second fallopian tube measures 4 cm in length and 0.5 cm in diameter. The fimbrial end is not identified in this fallopian tube. Sections reveal unremarkable cut surfaces. Executive Marketing Assistant sections are submitted in two cassettes as follows: 1 - fallopian tube with fimbrial end, 2 - second fallopian tube without fimbrial end. The second fallopian tube is submitted in entirety. / SJ:ami 08/15/2021 TC:4 CPT: 75545 x2
--- NOTE | 2021-08-15 08:15 | OP.PCM_ITS ---
Assessment & Plan (1) 39 weeks gestation of : (2) Previous delivery, antepartum: (3) Sterilization consult: Maternal Data Information Gestational age: 39.1 Details Operative Information Date of Procedure: 08/15/21 Pre-Operative Diagnosis: Previous section, Desires sterilization, 39 weeks Post-Operative Diagnosis: same, live female infant Indications for : Repeat Elective and Desires elective sterilization Classification: Scheduled Procedure Type: bilateral salpingectomy teleservices representative #1: Won Lam Type of Anesthesia: Spinal Antibiotic Given: Ancef 2 grams IV x1 Drain: Sloan to straight drain Estimated Blood Loss: 600 Fluids Replaced: 700 Procedure Start Time: 07:36 Procedure Stop Time: 08:16 Time of Delivery: 07:44 Findings Description of Procedure: After informed consent was obtained the patient was taken to the operating room she was given spinal anesthesia. He was placed in the supine position. She was then prepped and draped in normal sterile fashion. Once spinal anesthesia was found to be adequate skin incision was made with a scalpel in a Pfannenstiel fashion. It was carried down to the underlying layer of the fascia. Fascia was then incised midline with scapel and extended laterally using curved britt. 2 straight Juanita's were placed in the superior aspect of the fascial edge and the rectus muscles were dissected off sharply. Attention was then turned to the inferior aspect where again the fascial edge was grasped with 2 straight [place] clamps tented up and the rectus muscle dissected off sharply. At this time the rectus muscles were grasped in the midline using 2 Allis clamps and scalpel was used to separate the rectus muscles. Using blunt force the peritoneum was then entered. Metzenbaums were used to take down the rectus muscles inferiorly as well as the peritoneum. At this time the vesicouterine peritoneum was identified. Adhesions to bladder noted- taken down with metzenbaum. Metzenbaum scissors were used to create a bladder flap and then taken down digitally. Rectus muscles were incised bilaterally to create more room. Good hemostasis was appreciated this was completed using the Bovie. Uterine incision was made in a low transverse fashion with the scalpel and then entered bluntly. Gentle opposing traction was placed to extend the uterine incision. The membranes were ruptured amniotic fluid clear. Infant's head was then brought to the uterine incision was delivered atraumatically followed by the rest 's body. At this time delayed cord clamping was performed mouth nose were suctioned. was then handed to the waiting nursery team. The placenta was then removed with gentle traction. The uterus was removed from the intra-abdominal cavity is wrapped in a moist lap. it was cleared of all clots and debris using a moist lap. Ring clamps were placed on the uterine angles. #1 Vicryl suture was used in a running locked fashion for the first layer. Followed by second imbricating layer with #1 Vicryl. Bilateral fallopian tubes were appreciated. Small adhesion on the fimbriated end on the left tube was appreciated. At this time the right tube was grasped with Kim LigaSure device was used to coagulate and ligated along the mesosalpinx remove the entire tube. The uterus was then placed back in the intra-abdominal cavity. This was repeated on the left side. A small portion of the fimbriated end on the left was left in place due to adhesions onto the ovary and risk for bleeding. Great hemostasis was appreciated at this time the uterine incision was again evaluated good hemostasis was appreciated. Adrienne was placed over the uterine incision. The peritoneum was grasped with Kellys. Peritoneum was reapproximated using #2 Vicryl suture in a running fashion. Adrienne placed over the rectus muscles. The fascia was then reapproximated using #1 Vicryl in a running fashion. Subcutaneous layer was evaluated and Bovie was used for any small oozing that was noted -Adrienne placed in the subcu tissue .2-0 plain gut was then used to reapproximate the subcutaneous layer 4-0 Monocryl was used to reapproximate the skin in a subcutaneous fashion. Dry sterile dressing was applied. Instrument lap needle count were correct ?2. Anticipated normal postoperative course for this patient. Presentation: Positive for Vertex Amniotic Membrane Rupture Type: Artificial Amniotic Fluid Description: Clear Placental Delivery Description: Spontaneous Placenta Disposition: [facility] Specimen(s) Sent to Pathology: bilateral tubes Cord Vessel Description: 3 Vessels Cord Entanglement: None Infant A Gender: Female (1 minute): 9 (5 minute): 9 Delayed Cord Clamping: Yes Complications Risks of Surgery Discussed w/Patient: Bleeding, Anesthesia Risks, Infection, Permanency, Failure Rate of 1 to 2%, Injury to surrounding structure(s) including bowel and bladder and Availability of other non-permanent control options Complications: none
[2021-08-15] MEDS: Ketorolac 30 MG/ML Syringe IV ×3 (09:12→21:12)
[2021-08-15] MEDS: Lactated Ringers 1,000 ML 100 ML IV ×2 (11:35→21:15)
[2021-08-15] MEDS: Citalopram 20 MG Tablet PO (11:47)
[2021-08-15] MEDS: Senna/Docusate Sodium 1 Tablet PO (11:47)
[2021-08-15] MEDS: 0.9% Saline Lock 10 ML Syringe IV ×2 (15:13→21:12)
--- NOTE | 2021-08-15 16:28 | NURSING ---
During fundal check at 1620 this RN noticed increased drainage on dressing. Outlined. Pt reports sneezing recently. This RN instructed pt to splint area when coughing or sneezing. Will continue to monitor.
--- NOTE | 2021-08-15 18:58 | PCM.PN.BLA ---
Progress Note Called to assess incision. Dressing saturated with dark red blood over a short period of time. Dressing removed. Using a sterile q-tip the incision was probed all the way across and the fascia noted to be intact. The incision was oozing dark red blood across the entire length of the incision and continued to drain a small-moderate amount. A silver dressing was placed, and a weight placed over the incision to apply pressure. Will also use an abdominal binder tonight as well.
--- NOTE | 2021-08-15 19:48 | NURSING ---
In to pt's room to change dressing at ~1830 - had checked dressing around 1730, and while bleeding hadn't extended beyond borders drawn on dressing, it appeared to be pooling at the bottom of the dressing. At 1830, dressing noted to be ~85% saturated, and more pooling noted along the bottom of the dressing. Dr. Salvador called and informed of the dressing being this saturated with pooling - in to evaluate incision and bleeding. Dressing removed, and incision probed by Dr. Salvador. Discussed telfa vs. silver mepilex, and decided to do silver mepilex and add a 5-lb. weight to incision. This added, and then an abd. binder added to keep pressure from weight applied to incision. Dressing D&I appx. 15 min after being applied. Pt. very anxious about being able to get up, and really wants to shower. Encouraged to rest more in bed, and told that she wouldn't be able to shower for a while as we make sure that her incision is stable. Pt. verbalized understanding.
[2021-08-15] MEDS: Enoxaparin 40 MG/0.4 ML Syringe SC (21:12)
[2021-08-16 00:39] VITALS: BP 122/63; PULSE 75; RESP 18; TEMP 36.4; O2SAT 96
[2021-08-16] MEDS: Acetaminophen 500 MG Tablet 1000 MG PO ×4 (00:45→18:29)
[2021-08-16] MEDS: Ketorolac 30 MG/ML Syringe IV (03:51)
[2021-08-16] MEDS: 0.9% Saline Lock 10 ML Syringe IV (03:54)
[2021-08-16 04:02] VITALS: BP 124/76; PULSE 74; RESP 18; TEMP 36.3; O2SAT 96
[2021-08-16 06:04] LABS: Hematocrit 28.5 % (37-47); Hemoglobin 9.6 g/dL (12.0-15.0); Mean Corp Hgb Conc 33.7 g/dL (32-36); Mean Corpuscular Hgb 30.8 pg (27.0-32.0); Mean Corpuscular Volume 91.3 fL (81-99); Mean Platelet Vol. 10.9 fl (6.2-12.0); Platelet Count 161 K/mm3 (150-450); RBC Distribution Width CV 14.1 % (11.6-14.6); RBC Distribution Width SD 46.8 fl (35.1-43.9); Red Blood Count 3.12 M/mm3 (4.2-5.4); White Blood Count 12.1 K/mm3 (4.4-11.0)
[2021-08-16 07:50] VITALS: BP 130/75; PULSE 87; TEMP 36.5; O2SAT 97
[2021-08-16] MEDS: Ibuprofen 600 MG Tablet PO ×3 (08:10→20:58)
--- NOTE | 2021-08-16 09:25 | PN.OBGYN_ITS ---
Subjective Subjective Doing well per patient and nursing staff. Ambulating and taking PO without difficulty. Voiding and passing flatus. Pain controlled. , services for assistance. Denies headache, visual changes, chest pain, shortness of breath, leg pain or increased bleeding. Lochia normal. Objective Data Objective Data Vital Signs: Vital Signs Temp Pulse Resp BP Pulse Ox 97.7 F L 87 18 130/75 H 97 08/16/21 07:50 08/16/21 07:50 08/16/21 04:02 08/16/21 07:50 08/16/21 07:50 Oxygen Flow Rate (L/min) 3 Oxygen Delivery Method Room Air Weight: 206 lb Body Mass Index (BMI) 37.6 Intake & Output: Intake and Output for Last 24 Hours 08/14/21 08/15/21 08/16/21 23:59 23:59 23:59 Intake Total 3907.50 / 3907.50 Output Total 850 / 850 Balance 3057.50 / 3057.50 Lab / Micro Data Result Diagrams: 08/16/21 05:45 Labs: Laboratory Results - last 24 hr 08/16/21 05:45: WBC 12.1 H, RBC 3.12 L, Hgb 9.6 L, Hct 28.5 L, MCV 91.3, MCH 30.8, MCHC 33.7, RDW Std Deviation 46.8 H, RDW Coeff of Becky 14.1, Plt Count 161, MPV 10.9 Micro: Microbiology 08/15/21 05:30 Nasal Secretion SARS-CoV-2 Antigen (Rapid) - Final ROS Constitutional Constitutional: Reports systems reviewed and no addt'l complaints, except as documented; Denies headache(s) Eyes Eyes: Denies acute decrease in peripheral vision, blurry vision or change in v ision ENT HEENT: Reports systems reviewed and no addt'l complaints, except as documented Cardiovascular Cardiovascular: Denies chest pain or dizziness Respiratory/Chest Respiratory/Chest: Denies cough, dyspnea, dyspnea on exertion, shortness of breath at rest or shortness of breath with exertion Gastrointestinal Gastrointestinal: Denies abdominal pain, diarrhea, nausea or vomiting Genitourinary Genitourinary: Denies abdominal discomfort Musculoskeletal Musculoskeletal: Denies limited range of motion Integumentary Integumentary: Reports systems reviewed and no addt'l complaints, except as documented Neurologic Neurologic: Reports systems reviewed and no addt'l complaints, except as documented Psychiatric Psychiatric: Reports systems reviewed and no addt'l complaints, except as documented Endocrine Endocrinology: Reports systems reviewed and no addt'l complaints, except as documented Hematologic/Lymphatic Hematologic/Lymphatic: Reports systems reviewed and no addt'l complaints, except as documented Allergic/Immunologic Allergic/Immunologic: Reports systems reviewed and no addt'l complaints, except as documented Physical Exam Const alert and oriented x3 General Appearance: cooperative Orientation / Consciousness: awake, oriented to person, oriented to place and oriented to time Exam Limitations: no limitations HEENT normocephalic Head and Scalp: normal to inspection, normocephalic and atraumatic Face and Sinus: normal facial exam Eyes General Eye: normal appearance of both eyes Neck full ROM Chest Chest: symmetrical chest wall rise Resp normal respiratory effort and normal air movement Auscultation: clear to auscultation bilaterally Cardio regular rate, regular rhythm, S1 normal heart sound, S2 normal heart sound, no murmurs, no rub, no gallops and no clicks GI normal to inspection, nondistended, normoactive bowel sounds and non-tender GI Narrative: Dressing with large amount >75% saturated with blood. No new drainage since last night per nursing staff. appearance of the vagina normal Bladder / Kidney Exam: no CVA tenderness Back/Spine normal ROM Extremity normal to inspection and full ROM Skin no rashes or lesions noted Neuro oriented x3, CN's II-XII intact bilaterally and moves all extremities Sensorium / Orientation: awake, alert and oriented to person Motor Exam: clonus absent Deep Tendon Reflexes: Rt Patellar (L4): 2+ and Lt Patellar (L4): 2+ Assessment & Plan (1) S/P section: PLAN: 1) POD #1 Repeat LTCS 2) VSS 3) I&Os 4) Pain management 5) dressing removed and replaced with pressure dressing and weight. collaborative physician notified of status and assessment
[2021-08-16] MEDS: Citalopram 20 MG Tablet PO (09:59)
[2021-08-16] MEDS: Senna/Docusate Sodium 1 Tablet PO (09:59)
--- NOTE | 2021-08-16 10:12 | MDS.RN ---
dressing change to pressure dressing with 5 pound weight applies- will continue to monitor for drainage and update provider as needed.
[2021-08-16 13:25] VITALS: BP 130/71; PULSE 88; RESP 16; TEMP 36.6; O2SAT 96
[2021-08-16 14:02] LABS: Pathology Specimen OB SEE PATHOLOGY REPORT
[2021-08-16] MEDS: Enoxaparin 40 MG/0.4 ML Syringe SC (20:59)
[2021-08-16 22:00] VITALS: BP 124/65; PULSE 86; RESP 16; TEMP 36.8; O2SAT 96
[2021-08-17] MEDS: Acetaminophen 500 MG Tablet 1000 MG PO ×2 (00:26→06:37)
[2021-08-17] MEDS: Ibuprofen 600 MG Tablet PO ×2 (02:32→08:55)
[2021-08-17 02:34] VITALS: BP 126/72; PULSE 78; RESP 18; TEMP 36.4; O2SAT 96
--- NOTE | 2021-08-17 08:14 | PCM.DC.SUM ---
Providers Date of Admission: 08/15/21 Primary Care Physician: No Primary Care Phys Reason For Visit: REPEAT Diagnosis Discharge Diagnosis (1) S/P section: Status: Acute Code(s): Z98.891 - History of uterine scar from previous surgery Medications at Discharge Home Medications citalopram [Celexa] 20 mg PO DAILY 08/15/21 [id number] [] 1 tab PO DAILY 08/15/21 Hospital Course Operations section Summary of Care Provided Hospital Course: Patient for repeat section with bilateral tubal ligation. Hospital course was uneventful. Physical Exam Narrative Patient seen at bedside. without difficulty. Ambulating and voiding. Denies any headache, dizziness, SOB , or CP. Lochia decreased. Pain controlled with PO Tylenol and Motrin. Desires discharge home today. Const alert and no apparent distress General Appearance: cooperative and comfortable Exam Limitations: no limitations HEENT normocephalic Eyes General Eye: normal appearance of both eyes Neck full ROM General: normal visual inspection Chest Chest: symmetrical chest wall rise Resp normal respiratory effort and normal air movement Effort and Inspection: symmetric chest movement Auscultation: clear to auscultation bilaterally Cardio regular rate and regular rhythm GI normal to inspection, nondistended, normoactive bowel sounds Back/Spine normal ROM Extremity full ROM and no calf tenderness General Extremity: normal exam except as noted Skin no rashes or lesions noted Neuro CN's II-XII intact bilaterally Psych mental status grossly normal Weight / BMI Weight Weight: 206 lb Body Mass Index (BMI) 37.6 ABG / Lab / Microbiology Data Result Diagrams: 08/16/21 05:45 Microbiology: Microbiology 08/15/21 05:30 Nasal Secretion SARS-CoV-2 Antigen (Rapid) - Final D/C Instructions Discharge Diet: No restrictions May resume sexual activity in: 6-8 weeks Weight Bearing Status: Weight bearing as tolerated Lifting Restrictions: 20 lbs Call your doctor if your incision/area has: Continuous Slow Oozing, Increased Pain/ Swelling, Increased Redness, Foul Smelling Discharge and Swelling at the incision site Call your doctor if you observe: Fever of 101 or Higher, Inability to urinate, Using more than 1 pad per hour, Shortness of breath, Chest pain, Calf discomfort and Uncontrolled pain Remove Dressing in: 5 days Cleanse incision/area with: Soap & Water and Keep Dressing Clean & Dry When: 1 week in office for incision check or sooner if needed 6 weeks Meaningful Use Info Meaningful Use Diagnoses (Choose all that apply): None applicable Discharge Plan Admission Admit Date/Time: 08/15/21 05:08 Primary Reason for Your Visit: Repeat section Attending Provider: Re Osuna Primary Care Provider: Care Physician,No Primary Discharge Orders/Prescriptions Prescriptions: No Action citalopram [Celexa] 20 mg Tablet 20 mg PO DAILY RF: 0 1 mg Tablet 1 tab PO DAILY RF: 0 Referrals / Follow Up: Care Physician,No Primary [Primary Care Provider] - Disposition Disposition (needs filled in before D/C Order can be placed): Home, Self Care
[2021-08-17 08:59] VITALS: BP 118/86; PULSE 60; RESP 16; TEMP 36.7; O2SAT 97
[2021-08-17] MEDS: Senna/Docusate Sodium 1 Tablet PO (10:16)
[2021-08-17] MEDS: Citalopram 20 MG Tablet PO (10:16)
--- NOTE | 2021-08-17 11:31 | CASEMGMT ---
Social Work Assessment Labor and Delivery Unit Patient Address: [address] [place] [address] Phone number: [phone] Date of Referral: 08/15/2021 Time of Referral: 529 Referred By: Dr. Osuna Date of Intervention: 08/17/2021 Time of Intervention: Approximately [id number] Reason for Referral: Maternal history of marijuana use in . History obtained from: Medical records and mother of baby (MOB) Ashley He; father of baby (FOB) Milton Parada present for most of conversation. Household composition: MOB and FOB just moved into a new place a couple of months ago also in the home is now older children. Home situation is reported to safe and adequate. Patient's parent/guardian status: CUBA is a 26-year-old single female, involved with the FOB for the last 9 years. MOB denies any type of domestic violence or intimate partner violence in this relationship. MOB and FOB now have 3 children together: Josie (03.08.2016), Mely (born 12.11.2018), and baby Farideh Parada (born 08.15.2020). Medical History: CUBA is 3, para 2 now 3 after delivering . care started at 8 weeks. Maternal history of spina bifida, seizure disorder though no seizures in several years, and alcohol syndrome. delivered at 39 weeks gestation via section. Weighing 5 pounds 9 ounces. Apgars 9 and 9 at 1 and 5 minutes of life. Educational Status: High school. 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 Denies issues with reading writing or learning comprehension. Financial Status: CUBA was working at [employer] as an [employer] NA but will be taking time off, and uncertain about returning back to work at this time. [employer] works as a good for [employer] and works full-time. Infant Supplies: CUBA reports to have all necessary supplies to care for the baby including a safe sleep space in the form of bassinet, pack and play and a crib. Car seat in place. Reports to having a clothing, diapers, wipes. MOB is breast-feeding. Childcare/Caregiver(s): MOB will be the primary caregiver with the help from FOB when he is home. Transportation: FOB has a shag truck driver's license and a vehicle, provides transportation to the MOB when needed. FOB's mother also will help. MOB does not have her shag truck driver's license. Programs/Agencies Involved: Family is actively involved with job and family services for medical. We will reapply for food assistance but had been declined when MOB was working. Active with WIC. Reports to go to the counseling center and will start back up now that baby has delivered. History of [facility] housing to subsidize rent. Verbally agrees to early Headstart services. Children Services/Legal Issues: MOB denies any legal issues for herself or the FOB. Reports a history of children services coming out for a brief time after an second child was born, due to marijuana exposure in utero to that child. CUBA did grow up in the foster care system, removed from her parental home around the age of 7 or 8. MOB stayed in the foster care system until she aged out. Behavioral Health Issues: Mental Health History: MOB reports a known history of depression, anxiety, and depression after all past deliveries. Medical record also indicates the MOB has a history of bipolar disorder, PTSD, reactive attachment disorder, and alcohol syndrome. MOB has a history of treatment at the counseling center with psychiatry and counseling. Plans to return to counseling now that the baby is born. MOB reports her issues usually surround more around anxiety, and fears even about letting the children do things with others. MOB reports believe that counseling is helpful to be able to talk through these fears. MOB reports she just started Celexa during this hospitalization and will stay on this during the timeframe, with IT ARCHITECT prescribing this. Denies any history of suicidal ideations. [place] depression screen score of 11 this date, which is at the threshold for active/current depressive symptoms. Refer to attached link for further details, but MOB's main symptoms are anxiety related. MOB reports she venita by taking some time to herself and also talking it out with others. Substance Use History: MOB denies drinking alcohol. Endorses history of marijuana use and use during this . MOB initially reported that use was just at the beginning of the , though when current drug screen MOB endorsed use about a week and a half ago. Reports use in was due to inability to sleep. Reports had really stopped and just picked this back up recently. Denies any other substance use history including prescriptions, heroin, meth, cocaine. MOB does use tobacco. Family History: MOB biological parents both have history of substance use issues. FOB reports he used to drink quite a bit but has stopped drinking. MOB reports FOB has been without alcohol for 9 months. FOB does have history of marijuana use. Denies any other substance use history. Drug Screens: Maternal drug screen positive on 01/10/2021 and at delivery on 08/15/2021 for marijuana. Urine drug screen for baby is negative. Meconium drug screen is pending. Family/Social Stressors: Maternal mental health history with history of 2 prior episodes of depression and anxiety. MOB just now starting Celexa and plans to return to counseling. Family moved during this but reports this was exciting and better now that the move is done. Potential for limited support, due to the FOB having to return back to work the day after discharge, as the family is now a single income household. Support Systems: JERROD is identified as a support. Additional support would be the FOB's mom, FOB sister Lola, and FOB's step brother and step [id number], Xavi and Brando. FOB does have to return back to work, but the FOB is mom and supposed to be coming over to help out and check in on MOB 08/18/21. Depression/Shaken Baby/Safe Sleeping: Reviewed mood and anxiety disorders, risk factors, importance of taking care of self, as well as that fathers for mood and anxiety complications. Reviewed safe sleeping and shaken baby prevention. ASSESSMENT: Met with the MOB and FOB together, and then at the end of wanting MOB to complete depression screening and addressed topic of safety in the home. MOB and FOB both cooperative and willing to engage in conversation with the social media community manager. FOB more quiet, on phone intermittently, but did participate at appropriate times. MOB talkative, appearing to have an anxious mood. Speech and motor activity within normal limits. MOB attempted baby during social work visit, and care for the baby appropriately. MOB voiced having well for all of her children. Parents report to have necessary supplies to care for the children. MOB agrees to an early Headstart referral for additional support. Reports plan to make herself a counseling appointment and reports she can do this on her own. MOB talkative about her mental health in front of the FOB, appearing open. Inquired whether parents have any history of substance use or concerns. MOB endorsed marijuana usage at the beginning of in front of the FOB. FOB admits to history of drinking but has not done so in a long time. Addressed safe plan of care with the parents regarding substance use and care of children. Both parents participated in this conversation. When alone with the MOB, we MOB completed [place] depression screen, which verifies depression/anxiety potentially presents at this time. MOB maintains she will continue on the medication that was started during this hospitalization and seek out counseling. MOB denies any type of intimate partner violence issues. Reviewed last use of marijuana for the MOB, due to MOB reporting last use was at the beginning of but having a positive drug screen at delivery. MOB reported that had used a week and half ago and that FOB is aware. Discussed the need for a referral to children services based off of the infants exposure to substances in utero. MOB reports she was expecting this conversation and is understanding if children services feels ready to come out. MOB reports she will be cooperative and take additional test if needed. Safe Plan of Care for related to substance use: FOB reports that usage of marijuana is done in the garage, not around the children. MOB plans to abstain from marijuana use at this time, and especially while breast-feeding. MOB reports understanding that breast-feeding and marijuana use do not coincide. This technical proposal writer also urged parents to ensure there is always 1 parent who has not been using marijuana when the care of children are needed. PLAN: MOB and infant will discharge home today. [facility] resource list provided as well as a packet on mood and anxiety disorders. Will be faxing early Headstart referral and making referral to children services. -LADONNA Lerner MSW *This note was generated with [employer] software. It may contain incorrect words, spelling, and punctuation that were not noted in review of the chart prior to signing*
--- NOTE | 2021-08-17 12:17 | CASEMGMT ---
Social Work Labor and Delivery Unit Call to [facility] children services and spoke with Milla Walters group supervisor yard in the intake department, extension [phone]. Referral given due to substance exposure in utero. Reported other dependency concerns including history of children services involvement, maternal mental health history. Reported strengths and that MOB has restarted medication for mood, reports intention of starting counseling, and agreed to an early Headstart referral. Brief maternal and histories provided. Fax early Headstart referral to confirmed fax to [facility]. No other services requested or indicated at this time, other than monitoring for meconium drug screen results. Will call children services again should results be positive. -JOYCE Lerner, INFORMATION SECURITY *This note was generated with Beaker dictation software. It may contain incorrect words, spelling, and punctuation that were not noted in review of the chart prior to signing*
[2021-08-18 05:39] VITALS: PULSE 97; O2SAT 97
[2021-08-18 05:44] VITALS: PULSE 105; O2SAT 98
== END 2021-08-17 10:47 | disposition home or self-care (01) | DRG 539 ==
PROVIDERS: Admitting Provider Obstetrics & Gynecology; Visit Provider Obstetrics & Gynecology
PROC: 0UT70ZZ Resection of Bilateral Fallopian Tubes, Open Approach (ICD-10-PCS; CPT 59514; principal; 2021-08-15 07:15)
DX: O34.211 Maternal care for low transverse scar from previous cesarean delivery (principal); F31.9 Bipolar disorder, unspecified; F41.9 Anxiety disorder, unspecified; O99.344 Other mental disorders complicating childbirth; Z30.2 Encounter for sterilization; O99.892 Other specified diseases and conditions complicating childbirth; N32.89 Other specified disorders of bladder; N73.6 Female pelvic peritoneal adhesions (postinfective); Z37.0 Single live birth; Z3A.39 39 weeks gestation of pregnancy; Z87.891 Personal history of nicotine dependence
CPT/HCPCS: 59025; 59050; 80307; 85025; 85027; 86850; 86900; 86901; 87426; 88302; 99218; 99251; J7120; A4216; G0378; G0463; J2405